=== PATIENT | male | born 1980 | race Caucasian/White ===

== ENCOUNTER 2017-11-30 14:32 | Emergency (ER) | payer SELFPAY ==
[~2017-11-30 14:32] MED LIST: predniSONE 20 MG TAB PO SCH
[2017-11-30] MEDS ORDERED: IPRATROPIUM/ALBUTEROL 3 ML DEYVIAL IH ONE (14:43)
--- NOTE | 2017-11-30 14:54 | EDPHY ---
H & P Stated Complaint: difficulty breathing. +wheezes Time Seen by Provider: 11/30/17 14:53 HPI/ROS: CHIEF COMPLAINT: Dyspnea and wheezing HISTORY OF PRESENT ILLNESS: The patient presents to the ED by ambulance with complaints of dyspnea and wheezing. The patient has a history of hospitalization for respiratory failure in August of this year. The patient has not follow up with the primary care provider. The patient does have a history of smoking. The patient denies any asymmetric calf pain or swelling. He does report a dry nonproductive cough. The patient is taking no regular medications. He did report using an albuterol inhaler twice yesterday without improvement of his symptoms. REVIEW OF SYSTEMS: A comprehensive 10 point review of systems is otherwise negative aside from elements mentioned in the history of present illness. Source: Patient - Personal History Current Tetanus/Diphtheria Vaccine: Yes Current Tetanus Diphtheria and Acellular Pertussis (TDAP): Yes - Medical/Surgical History Hx Asthma: No Hx Chronic Respiratory Disease: No Hx Diabetes: No Hx Cardiac Disease: No Hx Renal Disease: No Hx Cirrhosis: No Hx Alcoholism: Yes Hx HIV/AIDS: No Hx Splenectomy or Spleen Trauma: No Other PMH: "lung failure" - Social History Smoking Status: Former smoker - Physical Exam Exam: General Appearance: Disheveled, obese, no acute distress Eyes: Pupils equal and round no pallor or injection ENT, Mouth: Mucous membranes moist Respiratory: Mild tachypnea, bilateral expiratory wheezing present Cardiovascular: Regular rate and rhythm Gastrointestinal: Abdomen is soft and nontender, no masses, bowel sounds normal Neurological: A&O, normal motor function, normal sensory exam, normal cranial nerves Skin: Warm and dry, no rashes Musculoskeletal: Neck is supple nontender Extremities: symmetrical, full range of motion Constitutional: Initial Vital Signs Temperature (C) 36.9 C 11/30/17 14:34 Heart Rate 109 H 11/30/17 14:34 Respiratory Rate 28 H 11/30/17 14:34 Blood Pressure 151/94 H 11/30/17 14:34 O2 Sat (%) 93 11/30/17 14:34 O2 Delivery Mode Room Air Allergies/Adverse Reactions: No Known Allergies Allergy (Unverified 11/30/17 14:34) Home Medications: Medication Instructions Recorded predniSONE [prednisone 20mg (RX)] 3 tab PO DAILY #15 tab 11/30/17 Medical Decision Making - Diagnostics Imaging Results: Imaging Impressions Chest X-Ray 11/30/17 14:57 Impression: 1. Pulmonary venous hypertension. Impossible to dev technical mgr heart size. 2. Airways disease. No pneumonia. Results discussed with Dr. Person at 5:15 PM. ED Course/Re-evaluation: I reviewed the patient's outpatient records including his hospitalization from [facility] earlier this year. The patient does have a history of a known intrathoracic hernia which was noted during his evaluation at [facility]. The patient had been referred to thoracic surgery for outpatient follow-up once he had better control of his asthma. The patient was treated with prednisone, albuterol and Atrovent in the emergency department. I re-evaluated the patient at 5:15 p.m. He is feeling better. He is not hypoxic. His wheezing has improved. The patient will be given a prescription for prednisone which has been filled through our medication assistance program. The patient is also given an albuterol inhaler. The patient is advised to return to the ED for any respiratory difficulties. He should follow up with [facility] and his cardiothoracic surgeon as recommended for evaluation of his [place] hernia. Differential Diagnosis: Differential diagnosis considered includes asthma, bronchitis, pneumonia - Data Points Medications Given: Discontinued Medications Albuterol (Proventil Neb) 3 ml IH EDNOW ONE Stop: 11/30/17 14:57 Last Admin: 11/30/17 15:09 Dose: 3 ml Albuterol/Ipratropium (Duoneb) 3 ml IH EDNOW ONE Stop: 11/30/17 14:44 Last Admin: 11/30/17 14:54 Dose: 3 ml Prednisone (Prednisone) 60 mg PO EDNOW ONE Stop: 11/30/17 14:57 Last Admin: 11/30/17 15:09 Dose: 60 mg Departure - Departure Disposition: Home, Routine, Self-Care Clinical Impression: Exacerbation of asthma Condition: Good Instructions: Asthma (ED) Additional Instructions: 1. Albuterol inhaler up to every 2 hr as needed. 2. Prednisone as directed for next 5 days. 3. Please follow up with [facility] if you plan to stay in [place] for local care. 4. I do recommend following up with the cardiothoracic Referrals: [facility],. [Clinic] - As per Instructions Prescriptions: predniSONE [prednisone 20mg (RX)] 3 tab PO DAILY #15 tab
[2017-11-30] MEDS ORDERED: predniSONE 20 MG TAB PO ONE (14:56)
[2017-11-30] MEDS ORDERED: ALBUTEROL 3 ML DEYVIAL IH ONE (14:56)
[2017-11-30] MEDS ORDERED: IPRATROPIUM/ALBUTEROL 3 ML DEYVIAL ONE (17:08)
[2017-11-30] MEDS ORDERED: ALBUTEROL INH PREPACK MDI TAKEHOME ONE (17:19)
[2017-11-30 17:20] VITALS: BP 138/82
== END 2017-11-30 17:34 | disposition home or self-care (01) ==
DX: J45.901 Unspecified asthma with (acute) exacerbation (principal); Z87.891 Personal history of nicotine dependence
CPT/HCPCS: J7512; J7613